=== PATIENT | female | born 1970 | race Caucasian/White ===

== ENCOUNTER 2017-04-13 10:59 | Emergency (ER) | payer MEDICARE, MEDICAID ==
[~2017-04-13] VITALS: Ht 162.6 cm; Wt 115.2 kg
[2017-04-13] MEDS ORDERED: TORSEMIDE100 M1 PO (11:41)
[2017-04-13] MEDS ORDERED: LAMICTAL100 M2 PO (11:41)
[2017-04-13] MEDS ORDERED: CYMBALTA60 M1 PO (11:41)
[2017-04-13] MEDS ORDERED: POTASSIUM CHLO20 ME3 PO (11:42)
[2017-04-13] MEDS ORDERED: COUMADIN5 M2 PO ×2 (11:42→11:43)
[2017-04-13] MEDS ORDERED: LEVOTHYROXINE50 MC3 PO (11:42)
[2017-04-13] MEDS ORDERED: CALCIUM CARBON600 M2 PO (11:43)
[2017-04-13] MEDS ORDERED: ATIVAN0.5 M1 PO (11:43)
[2017-04-13] MEDS ORDERED: PROTONIX40 M2 PO (11:43)
[2017-04-13] MEDS ORDERED: ABILIFY2 M1 PO (11:44)
[2017-04-13] MEDS ORDERED: AMILORIDE HCL5 M1 PO (11:44)
[2017-04-13] MEDS ORDERED: RANITIDINE HCL150 M2 PO (11:44)
[2017-04-13] MEDS ORDERED: TOPAMAX100 M2 PO (11:44)
[2017-04-13] MEDS ORDERED: DICYCLOMINE HCL20 M1 PO (11:44)
[2017-04-13] MEDS ORDERED: VENTOLIN HFA18 G2 INH (11:45)
[2017-04-13] MEDS ORDERED: MACROBID 100 M100 M1 PO (11:45)
[2017-04-13] MEDS ORDERED: PROMETHAZINE HC25 M3 PO (11:45)
== END 2017-04-13 12:44 ==
LOC: EDMED 10:59
PROC: 2W3QXYZ Immobilization of Right Lower Leg using Other Device (ICD-10-PCS; principal; 2017-04-13)
DX: M25.561 Pain in right knee (principal); I10 Essential (primary) hypertension; F31.9 Bipolar disorder, unspecified; Z79.01 Long term (current) use of anticoagulants; Z79.899 Other long term (current) drug therapy